=== PATIENT | female | born 1945 | race Caucasian/White ===

== ENCOUNTER → 2017-10-27 08:06 | Outpatient (CLI) | payer MEDICARE, BC, SELFPAY ==
--- NOTE | 2017-10-27 | DI.MG.S_ITS ---
BILATERAL DIGITAL SCREENING MAMMOGRAM 3D/2D WITH CAD POST LUMPECTOMY: 10/27/2017 CLINICAL: Routine screening. Personal history of breast cancer. Family history of breast cancer. Comparison is made to exams dated: 10/24/2016 mammogram, 10/14/2016 mammogram, and 10/12/2015 mammogram - [facility]. The tissue of both breasts is extremely dense, which lowers the sensitivity of mammography. Current study was also evaluated with a Computer Aided Detection (CAD) system. There are benign calcifications in both breasts. There also are post operative findings in the left breast. No significant masses, calcifications, or other findings are seen in either breast. There has been no significant interval change. IMPRESSION: BENIGN There is no mammographic evidence of malignancy. A 1 year screening mammogram is recommended. This exam was interpreted at Station ID: [id number]. NOTE: For mammograms, a report in lay terms will be sent to the patient. Approximately 15% of breast malignancies will not be visualized mammographically. In the management of a palpable breast mass, a negative mammogram must not discourage biopsy of a clinically suspicious lesion. Electronically Signed By: Peter yates/richy:10/27/2017 16:47:40 copy to: CLAUDY SCHMID letter sent: Normal Exam ACR BI-RADS Category 2: Benign Finding(s) [id number]
== END ==
PROVIDERS: Family Provider Physician Assistant; PCP Physician Assistant; Visit Provider Physician Assistant
DX: Z12.31 Encounter for screening mammogram for malignant neoplasm of breast (principal); Z85.3 Personal history of malignant neoplasm of breast; Z80.3 Family history of malignant neoplasm of breast
CPT/HCPCS: 77063; 77067

== ENCOUNTER → 2017-11-26 10:01 | Outpatient (CLI) | payer MEDICARE, BC, SELFPAY | PROVIDERS: PCP Physician Assistant; Visit Provider Nurse Practitioner Gerontology | DX: M81.0 Age-related osteoporosis without current pathological fracture (principal); Z78.0 Asymptomatic menopausal state; C50.919 Malignant neoplasm of unspecified site of unspecified female breast; Z82.62 Family history of osteoporosis; Z90.722 Acquired absence of ovaries, bilateral; Z87.891 Personal history of nicotine dependence | CPT/HCPCS: 77080 ==

== ENCOUNTER 2017-12-31 11:08 | Day surgery (SDC) | payer MEDICARE, BC, SELFPAY ==
--- NOTE | 2017-12-31 07:45 | PM.PREOP ---
Pre-operative Note Interval Note Pre-op Check: Yes History & Physical Reviewed by Physician Changes: No
[2017-12-31 11:49] VITALS: BMI 15.6
[2017-12-31] MEDS: PROPARACAINE 0.5% OPHTH SOL 2 DROPS EYE-OP (11:51)
[2017-12-31] MEDS: CATARACT EYE COMPOUND (10 DROPS/SYRINGE) 3 DROPS EYE-OP (11:56)
[2017-12-31 12:07] VITALS: BP 131/74; PULSE 80; RESP 24; TEMP 36.5; O2SAT 95
[2017-12-31] MEDS: CHONDROIDTIN/SOD HYALURONATE 1.05 ML SYRINGE INTRAOCULA (14:22)
[2017-12-31] MEDS: BALANCED SALT IRRIG SOLN NO.2 15 ML IRRIG.SOLN IRR (14:22)
[2017-12-31] MEDS: CARBACHOL 1.5 ML VIAL INJ (14:22)
[2017-12-31] MEDS: HYALURONATE SODIUM 10 MG/ML SYRINGE INJ (14:23)
[2017-12-31] MEDS: MOXIFLOXACIN OPHTH DROPS 3 ML BOTTLE 2 DROPS INJ (14:23)
[2017-12-31] MEDS: OFLOXACIN 0.3% OPHTH 5 ML 2 DROPS EYE-RIGHT (14:23)
[2017-12-31] MEDS: PHENYLEPHRINE/LIDOCAINE 3ML VIAL (OR) EYE-OP (14:25)
[2017-12-31] MEDS: TRIAMCINOLONE 50 MG/5 ML VIAL INJ (14:26)
[2017-12-31] MEDS: LIDOCAINE 2% 4 ML, BUPIVACAINE 0.5% (PF) 4 ML, HYALURONIDASE 150 UNIT INJ (14:26)
[2017-12-31] MEDS: BALANCED SALT IRRIG SOLN NO.2 500 ML, EPINEPHrine 1 MG IRR (14:26)
[2017-12-31] MEDS: LIDOCAINE 1% W/EPI INJ 20 ML INJ (14:29)
[2017-12-31 14:50] VITALS: BP 125/75; PULSE 80; RESP 15; TEMP 36.8; O2SAT 96
[2017-12-31 15:21] VITALS: BP 131/74; PULSE 80; RESP 24; TEMP 36.5; O2SAT 95
--- NOTE | 2017-12-31 17:35 | P.OP_ITS ---
Operative Date/Time/Diagnoses Date of procedure: 12/31/17 Time of procedure: 14:29 Procedure & Clinicians Procedure: Date of service: January 01, 2008 Preoperative diagnoses: 1. Right nuclear sclerotic and cortical Cataract. 2. Desire for a multifocal implant. Postoperative diagnoses: 1. Cataract removed by phacoemulsification with placement of a multifocal intraocular lens implant. Procedure: Phacoemulsification with posterior chamber intraocular lens implant Surgeon: Юлия Zheng MD Complications: None Specimen: None Implant: ZXROO +22.0 Blood loss: None Anesthesia: Retrobulbar with monitored standby Anesthesiologist: Marko Vasquez M.D. Description of procedure: Patient is a female year old with decreased vision due to cataract which is affecting activities of daily living. She wants surgery to improve vision. She was taken to the operating room and given IV sedation. A retrobulbar block insert consisting of 6 cc of 2% xylocaine without epinephrine mixed half and half with 0.5% Marcaine with 1 cc of hyaluronidase added is placed between the medial and lateral 1/3 of the inferior orbital rim. Lid akinesia is obtain with 1% xylocaine with epinephrine infiltrated along the lid margin. The eye is manually massaged for 30 sec, prepped using Betadine solution, and draped in the usual sterile fashion. Temporal approach was made, a 1 mm side-port incision was made at the 7:30 position. Phenylephrine 1.5% mixed with 1% xylocaine 0.2 cc was placed into the anterior chamber. Viscoat followed by Healon was then placed. A 2.6 mm clear incision with a 2.6 mm blade was placed at the 170 degree meridian. A 360 degree capsulorrhexis style capsulotomy was then performed with a cystitome needle on a Healon. Hydrodelineation and hydrodissection were performed. The phacoemulsification unit is introduced, and sculpting notice used to groove the central lens. It is then removed in chopping mode. Epi nucleus is removed with epinuclear mode and irrigation aspiration was used to remove the peripheral cortex. The posterior capsule is polished. The intraocular lens is selected, inspected, power confirmed, and placed in the posterior chamber. It is a Symfony multifocal IOL and was well centered.why The pupil was not constricted. The wound was stromally hydrated and tested for leaks, there was none and was left sutureless. Vigamox 0.1 cc was placed into the anterior chamber. Kenalog 0.2 cc was placed in the superior subconjunctival space. A drop of antibiotic and was placed and the eye was patched and shielded. The patient was stable and returned to the recovery room in excellent condition. Dictated by: Юлия Zheng MD Copy to: [facility]
== END 2017-12-31 15:23 | disposition home or self-care (01) ==
LOC: OR 11:10
PROVIDERS: PCP Physician Assistant; Visit Provider Ophthalmology
DX: H25.11 Age-related nuclear cataract, right eye (principal); I10 Essential (primary) hypertension; J44.9 Chronic obstructive pulmonary disease, unspecified
CPT/HCPCS: J0171; J2250; J2704; J3010; J3301; J3470; V2788

== ENCOUNTER 2018-02-25 09:09 | Day surgery (SDC) | payer MEDICARE, BC, SELFPAY ==
--- NOTE | 2018-02-25 08:15 | PM.PREOP ---
Pre-operative Note Interval Note Pre-op Check: Yes History & Physical Reviewed by Physician Changes: No
--- NOTE | 2018-02-25 08:16 | PM.PREOP ---
Pre-operative Note Interval Note Pre-op Check: Yes History & Physical Reviewed by Physician Changes: No
--- NOTE | 2018-02-25 08:27 | PM.OP.1 ---
Operative Date/Time/Diagnoses Date of procedure: 02/25/18 Time of procedure: 11:00 Procedure & Clinicians Procedure: Date of service: February 25, 2018 Preoperative diagnoses: 1. Left nuclear sclerotic and cortical cataract. 2. COPD 3. hypertension Postoperative diagnoses: 1. Cataract removed with phacoemulsification and Symfony Multifocal posterior chamber intra-ocular lens placed. Procedure: Phacoemulsification with posterior chamber intraocular lens implant Surgeon: Юлия Zheng MD Complications:none Specimen: None Implant:ZXROO+22.5 Blood loss: None Anesthesia: Retrobulbar with monitored standby Anesthesiologist: Sonu Covington M.D. Description of procedure: Patient is a female year old with decreased vision due to cataract which is affecting activities of daily living. She wants surgery to improve vision. She was taken to the operating room and given IV sedation. A retrobulbar block insert consisting of 6 cc of 2% xylocaine without epinephrine mixed half and half with 0.5% Marcaine with 1 cc of hyaluronidase added is placed between the medial and lateral 1/3 of the inferior orbital rim. Lid akinesia is obtain with 1% xylocaine with epinephrine infiltrated along the lid margin. The eye is manually massaged for 30 sec, prepped using Betadine solution, and draped in the usual sterile fashion. Temporal approach was made, a 1 mm side-port incision was made at the 12:00 position. Phenylephrine 1.5% mixed with 1% xylocaine 0.2 cc was placed into the anterior chamber. Viscoat followed by Healon was then placed. A 2.6 mm clear incision with a 2.6 mm blade was placed at the 180 degree meridian. A 360 degree capsulorrhexis style capsulotomy was then performed with a cystitome needle on a Healon. Hydrodelineation and hydrodissection were performed. The phacoemulsification unit is introduced, and sculpting notice used to groove the central lens. It is then removed in chopping mode. Epi nucleus is removed with epinuclear mode and irrigation aspiration was used to remove the peripheral cortex. The posterior capsule is polished. The intraocular lens is selected, inspected, power confirmed, and placed in the posterior chamber. The pupil was not constricted. The wound was strongly hydrated and tested for leaks, there was left sutureless. Vigamox 0.1 cc was placed into the anterior chamber. Kenalog 0.2 cc was placed in the superior subconjunctival space. A bandage contact was placed for a small superior epithelial defect at sideport due to peculum. A drop of antibiotic and was placed and the eye was patched and shielded. The patient was stable and returned to the recovery room in excellent condition. Dictated by: Юлия Zheng MD Copy to: [facility] Same procedure as scheduled: Yes
--- NOTE | 2018-02-25 08:32 | PM.PREOP ---
Pre-operative Note Interval Note Pre-op Check: Yes History & Physical Reviewed by Physician Changes: No
[2018-02-25] MEDS: PROPARACAINE 0.5% OPHTH SOL 2 DROPS EYE-OP (09:46)
[2018-02-25] MEDS: CATARACT EYE COMPOUND (10 DROPS/SYRINGE) 3 DROPS EYE-OP (09:47)
[2018-02-25 09:49] VITALS: BP 145/92; PULSE 95; RESP 16; TEMP 36.6; O2SAT 93; BMI 16.0
[2018-02-25] MEDS: LIDOCAINE 1% W/EPI INJ 20 ML INJ (11:02)
[2018-02-25] MEDS: MOXIFLOXACIN OPHTH DROPS 3 ML BOTTLE 2 DROPS INJ (11:02)
[2018-02-25] MEDS: BALANCED SALT IRRIG SOLN NO.2 15 ML IRRIG.SOLN IRR (11:02)
[2018-02-25] MEDS: CHONDROIDTIN/SOD HYALURONATE 1.05 ML SYRINGE INTRAOCULA (11:02)
[2018-02-25] MEDS: OFLOXACIN 0.3% OPHTH 5 ML 2 DROPS EYE-LEFT (11:03)
[2018-02-25] MEDS: TRIAMCINOLONE 50 MG/5 ML VIAL INJ (11:03)
[2018-02-25] MEDS: PHENYLEPHRINE/LIDOCAINE VIAL (OR) 0.2 ML EYE-OP (11:03)
[2018-02-25] MEDS: BALANCED SALT IRRIG SOLN NO.2 500 ML, EPINEPHrine 1 MG IRR (11:04)
[2018-02-25] MEDS: LIDOCAINE 2% 4 ML, BUPIVACAINE 0.5% (PF) 4 ML, HYALURONIDASE 150 UNIT INJ (11:04)
[2018-02-25] MEDS: HYALURONATE SODIUM 10 MG/ML SYRINGE INJ (11:06)
[2018-02-25] MEDS: CARBACHOL 1.5 ML VIAL INJ (11:07)
[2018-02-25 11:35] VITALS: BP 131/78; PULSE 83; RESP 16; TEMP 36.4; O2SAT 96
== END 2018-02-25 14:00 | disposition home or self-care (01) ==
LOC: OR 09:10
PROVIDERS: PCP Physician Assistant; Visit Provider Ophthalmology
DX: H25.12 Age-related nuclear cataract, left eye (principal); J44.9 Chronic obstructive pulmonary disease, unspecified; I10 Essential (primary) hypertension
CPT/HCPCS: J0171; J2704; J3301; J3470; V2788

== ENCOUNTER → 2018-02-26 16:38 | Outpatient (CLI) | payer MEDICARE, BC, SELFPAY ==
[2018-02-26 17:49] LABS: Add Manual Diff / Slide Review NO; Eosinophils Percent Auto 2.4 % (2-4); Hemoglobin 14.2 g/dL (12.0-16.0); Lymphocytes Percent Auto 15.2 % (25-40); Mean Corpuscular HGB Conc 32.2 % (30-36); Mean Corpuscular Hemoglobin 30.8 PG (26-34); Mean Corpuscular Volume 95.5 fL (80-100); Monocytes Percent Auto 9.5 % (3-14); Neutrophils Absolute Auto 3400 /uL (3000-5900); Neutrophils Percent Auto 71.9 % (50-75); Platelet Count 226 X10^3/uL (150-400); Red Blood Cell Count 4.61 X10^6/uL (4.0-5.2); Red Cell Distribution Width 15.2 % (11.6-14.8); White Blood Cell Count 4.7 X10^3/uL (4.5-11.0)
[2018-02-26 18:38] LABS: Alanine Aminotransferase 32 IU/L (9-52); Albumin 4.6 g/dL (3.5-5.0); Albumin Globulin Ratio 1.8 (1.0-2.8); Alkaline Phosphatase 86 U/L (38-126); Aspartate Aminotransferase 35 IU/L (14-36); BUN Creatinine Ratio 32.9 (6-22); Bilirubin Total 0.3 mg/dL (0.2-1.3); Blood Urea Nitrogen 23 mg/dL (7-17); Calcium 10.1 mg/dL (8.4-10.2); Carbon Dioxide 32 mmol/L (22-32); Chloride 104 mmol/L (98-107); Cholesterol 209 mg/dL (140-199); Estimated Glomerular Filt Rate > 60.0 mL/min (>60); Globulin 2.5 g/dL (1.7-4.1); Glucose 100 mg/dL (80-110); HEMOLYSIS < 15 (0-50); Potassium 5.2 mmol/L (3.4-5.1); Sodium 147 mmol/L (137-145); Total Protein 7.1 g/dL (6.3-8.2); Triglycerides 72 mg/dL (35-150)
[2018-02-26 18:46] LABS: HDL Cholesterol 125 mg/dL (40-60); LDL Cholesterol Calculated 70 mg/dL (<100)
[2018-02-26 18:52] LABS: Free T4, Direct Thyroxine 1.09 ng/dL (0.78-2.19)
[2018-02-26 19:07] LABS: Thyroid Stimulating Hormone 0.44 uIU/mL (0.47-4.68)
[2018-02-26 21:31] LABS: Vitamin D 25 Hydroxy (D3) 13.5 ng/mL (30.0-100.0)
[2018-02-28 14:44] LABS: Parathyroid Hormone Int 94 pg/mL (14-64)
== END ==
PROVIDERS: PCP Physician Assistant; Visit Provider Physician Assistant
DX: I10 Essential (primary) hypertension (principal); E78.2 Mixed hyperlipidemia; M81.0 Age-related osteoporosis without current pathological fracture; E44.0 Moderate protein-calorie malnutrition; J44.9 Chronic obstructive pulmonary disease, unspecified
CPT/HCPCS: 36415; 80053; 80061; 82306; 83970; 84439; 84443; 85025

== ENCOUNTER → 2018-03-19 11:08 | Outpatient (CLI) | payer MEDICARE, BC, SELFPAY ==
--- NOTE | 2018-03-19 | DI.MRI.S_ITS ---
PROCEDURE: MR HEAD/BRAIN WO CON INDICATIONS: DIZZINESS TECHNIQUE: Non-contrast axial T1 spin echo, axial T2 fast spin echo, sagittal and axial FLAIR, coronal T2 fast spin echo, axial gradient echo, axial diffusion and ADC through the brain. COMPARISON: [facility], CT, HEAD WITHOUT CONTRAST, 05/18/2012, 12:20. [facility], CT, HEAD WITHOUT CONTRAST, 07/08/2017, 9:39. [facility], MR, MR ANGIO HEAD WO CON, 03/19/2018, 11:26. FINDINGS: Image quality: Excellent. CSF spaces: Ventricles appear symmetric in size and shape. Basal cisterns are patent. No extra-axial fluid collections. Brain: No intracranial bleeds or mass effects. There is cerebral volume loss for age. There are periventricular and deep white matter chronic small vessel ischemic changes. Brainstem appears normal. Diffusion-weighted images show no acute ischemic insults. No chronic ischemic insults. Normal intravascular flow voids are present. Skull and face: Calvarial bone marrow is normal in signal. Orbits are normal. Note is made of bilateral lens replacements. Sinuses: Sinuses and mastoids are clear. IMPRESSION: No findings of acute or subacute infarction can be seen. Note is made of age-appropriate brain parenchymal volume loss and chronic small vessel ischemic changes. Dictated by: Bernabe Orellana M.D. on 03/19/2018 at 13:40 Approved by: Bernabe Orellana M.D. on 03/19/2018 at 13:41
--- NOTE | 2018-03-19 | DI.MRI.S_ITS ---
PROCEDURE: MR ANGIO HEAD WO CON INDICATIONS: DIZZINESS TECHNIQUE: Noncontrast axial 3-D [id number] MR angiogram, with 3-dimensional maximum intensity projection (MIP) reformats of the internal carotid arteries and posterior circulation then performed. COMPARISON: [facility], MR, MR HEAD/BRAIN WO CON, 03/19/2018, 11:34. [facility], CT, HEAD WITHOUT CONTRAST, 07/08/2017, 9:39. FINDINGS: Image quality: Excellent. Anterior circulation: Intracranial internal carotid arteries demonstrate normal size and intraluminal flow signal. The flow within the paired anterior cerebral arteries is normal and symmetric. The flow within the middle cerebral arteries is normal and symmetric. The anterior communicating artery is seen. No stenoses, occlusions, or aneurysms. Posterior circulation: Visualized portions of the vertebral arteries demonstrate normal caliber, and join to form a normal appearing basilar artery. The flow within the posterior cerebral arteries is normal and symmetric. No stenoses, occlusions, or aneurysms. IMPRESSION: Negative MRA. Dictated by: Bernabe Orellana M.D. on 03/19/2018 at 13:38 Approved by: Bernabe Orellana M.D. on 03/19/2018 at 13:40
== END ==
PROVIDERS: PCP Physician Assistant; Visit Provider Specialist
DX: R42 Dizziness and giddiness (principal)
CPT/HCPCS: 70544; 70551

== ENCOUNTER → 2018-07-10 16:00 | Outpatient (CLI) | payer MEDICARE, BC, SELFPAY ==
--- NOTE | 2018-07-10 | DI.RAD.S_ITS ---
PROCEDURE: XR RIBS LT MIN 3V W CXR1V INDICATIONS: INTERCOSTAL PAIN TECHNIQUE: 2 views of the left ribs were acquired, along with a single view chest. COMPARISON: None. FINDINGS: Severe motion degradation of the study Surgical changes and devices: None. Bones and chest wall: No fractures however limited evaluation given motion degradation of several images. No suspicious bony lesions. Overlying soft tissues appear unremarkable. There are prominent calcifications projecting in the left breast. There are surgical clips projecting in the the axilla. Lateral curvature of the spine. Possible calcified granulomas projecting in the right lung base versus rib end shadows. Lungs and pleura: No pleural effusions or pneumothorax. Lungs appear clear. Mediastinum: Mediastinal contours appear normal. Heart size is normal. IMPRESSION: Motion degraded examination. No definite rib fractures seen although given the extensive motion artifact consider repeat study if the patient's symptoms do not improve, or further evaluation with chest CT. Prominent left breast calcifications, nonspecific and recommend mammographic correlation No acute disease. Dictated by: Crescencio Arreguin M.D. on 07/10/2018 at 16:28 Approved by: Crescencio Arreguin M.D. on 07/10/2018 at 16:32
== END ==
PROVIDERS: PCP Physician Assistant; Visit Provider Physician Assistant
DX: R07.82 Intercostal pain (principal)
CPT/HCPCS: 71101

== ENCOUNTER → 2018-07-27 09:39 | Outpatient (CLI) | payer MEDICARE, BC, SELFPAY ==
--- NOTE | 2018-07-27 | DI.CT.S_ITS ---
PROCEDURE: CT CHEST WO CON INDICATIONS: compare to prior scan lung lesion TECHNIQUE: Noncontrast 5 mm thick sections acquired from the pulmonary apices to the posterior costophrenic angles. 7 mm thick coronal and sagittal MIP reformats were then acquired. For radiation dose reduction, the following was used: automated exposure control, adjustment of mA and/or kV according to patient size. COMPARISON: [facility], CT, THORAX WITHOUT CONTRAST, 07/29/2017, 13:16. FINDINGS: Image quality: Excellent. Lungs and pleura: No acute air space opacities. There is severe COPD. 3 areas of focal radiodensity within the lung parenchyma are again seen. These have not changed from 07/29/17, 1 year ago. These are located within the anterior left upper lobe, series 2 image 14, within the posterior lateral left upper lobe (series 2 image 17) and also within the same axial level at the right where lung scarring also appears present seen on series 2 image 17. No pleural effusions or pneumothorax. Central and peripheral airways are patent and normal in caliber. Mediastinum: Heart size is normal. No pericardial effusion. No mediastinal adenopathy by size criteria. Thoracic aorta and central pulmonary arteries are normal in size. Esophagus is normal in caliber. No hiatal hernia. Bones and chest wall: No suspicious bony lesions. No vertebral body compression fractures. No axillary or supraclavicular adenopathy by size criteria. Thyroid gland is not well-seen. Abdomen: Visualized upper abdominal solid organs and bowel loops appear normal in the absence of contrast. IMPRESSION: Stable morphology and size of 3 small separate lung radiodensities within the upper lobes bilaterally, likely representing sequela of prior inflammatory advance and lung scarring. No followup recommended. Severe COPD. Dictated by: Zi Mitchell M.D. on 07/27/2018 at 11:23 Approved by: Zi Mitchell M.D. on 07/27/2018 at 11:35
== END ==
PROVIDERS: PCP Physician Assistant; Visit Provider Physician Assistant
DX: R91.8 Other nonspecific abnormal finding of lung field (principal); J44.9 Chronic obstructive pulmonary disease, unspecified
CPT/HCPCS: 71250

== ENCOUNTER → 2018-08-11 14:36 | Outpatient (CLI) | payer MEDICARE, BC, SELFPAY ==
--- NOTE | 2018-08-11 | DI.US.S_ITS ---
LIMITED ULTRASOUND OF LEFT BREAST: 08/11/2018 CLINICAL: Focal left breast pain. Comparison is made to exams dated: 08/11/2018 mammogram, 10/27/2017 mammogram, 10/24/2016 mammogram, 10/14/2016 mammogram, 10/12/2015 mammogram, and 04/21/2015 [facility]. Color flow and real-time ultrasound of the left breast 12 o'clock region were performed. There is a benign irregular mass in the left breast at 12 o'clock anterior depth. This irregular mass is hyperechoic with posterior acoustic shadowing. This correlates as palpated and with mammography findings. There is associated skin thickening. IMPRESSION: BENIGN There is no sonographic evidence of malignancy. The irregular mass in the left breast is consistent with fat necrosis and is benign. Clinical followup is recommended for associated skin thickening. A 1 year screening mammogram is recommended. This exam was interpreted at Station ID: [id number]. Electronically Signed By: Peter Garcia M.D. ddp/:08/13/2018 16:24:45 copy to: CLAUDY SCHMID letter sent: Clinical Evaluation Ultrasound BI-RADS: 2 Benign
--- NOTE | 2018-08-11 | DI.MG.S_ITS ---
BILATERAL DIGITAL DIAGNOSTIC MAMMOGRAM 3D/2D: 08/11/2018 CLINICAL: Left breast thickening and tenderness. Family history of breast cancer. Personal history of breast cancer. Comparison is made to exams dated: 10/27/2017 mammogram, 10/24/2016 mammogram, 10/14/2016 mammogram, and 10/12/2015 mammogram - [facility]. The tissue of both breasts is extremely dense, which lowers the sensitivity of mammography. There is an oval high density fat necrosis with a circumscribed margin and grouped coarse dystrophic calcifications in the left breast at 1 o'clock anterior depth. This is not significantly changed and correlates as palpated. No other significant masses, calcifications, or other findings are seen in either breast. IMPRESSION: INCOMPLETE: NEEDS ADDITIONAL IMAGING EVALUATION The oval high density fat necrosis in the left breast is indeterminate. An ultrasound is recommended. This exam was interpreted at Station ID: [id number]. NOTE: For mammograms, a report in lay terms will be sent to the patient. Approximately 15% of breast malignancies will not be visualized mammographically. In the management of a palpable breast mass, a negative mammogram must not discourage biopsy of a clinically suspicious lesion. Electronically Signed By: Peter yates/richy:08/11/2018 16:09:06 copy to: CLAUDY SCHMID letter sent: Need Ultrasound ACR BI-RADS Category 0: Incomplete [id number]
== END ==
PROVIDERS: PCP Physician Assistant; Visit Provider Physician Assistant
DX: R92.8 Other abnormal and inconclusive findings on diagnostic imaging of breast (principal); R92.1 Mammographic calcification found on diagnostic imaging of breast; N64.1 Fat necrosis of breast; N64.4 Mastodynia; Z85.3 Personal history of malignant neoplasm of breast; Z80.3 Family history of malignant neoplasm of breast
CPT/HCPCS: 76642; 77066; G0279

== ENCOUNTER → 2019-01-01 15:29 | Outpatient (CLI) | payer MEDICARE, BC, SELFPAY ==
[2019-01-01 16:14] LABS: Add Manual Diff / Slide Review NO; Basophils Absolute Auto 0 /uL (0-100); Basophils Percent Auto 1.2 % (0-2); Eosinophils Absolute Auto 100 /uL (0-450); Eosinophils Percent Auto 1.5 % (2-4); Hematocrit 46.9 % (36-46); Hemoglobin 15.6 g/dL (12.0-16.0); Lymphocytes Absolute Auto 600 /uL (1100-4500); Lymphocytes Percent Auto 17.2 % (25-40); Mean Corpuscular HGB Conc 33.3 % (30-36); Mean Corpuscular Hemoglobin 30.8 PG (26-34); Mean Corpuscular Volume 92.3 fL (80-100); Monocytes Absolute Auto 400 /uL (0-900); Monocytes Percent Auto 10.3 % (3-14); Neutrophils Absolute Auto 2500 /uL (1500-7000); Neutrophils Percent Auto 69.8 % (50-75); Platelet Count 246 X10^3/uL (150-400); Red Blood Cell Count 5.08 X10^6/uL (4.0-5.2); Red Cell Distribution Width 13.7 % (11.6-14.8); White Blood Cell Count 3.6 X10^3/uL (4.5-11.0)
[2019-01-01 17:17] LABS: Alanine Aminotransferase 21 IU/L (9-52); Albumin 4.4 g/dL (3.5-5.0); Albumin Globulin Ratio 1.5 (1.0-2.8); Alkaline Phosphatase 117 U/L (38-126); Aspartate Aminotransferase 34 IU/L (14-36); BUN Creatinine Ratio 31.4 (6-22); Bilirubin Total 0.5 mg/dL (0.2-1.3); Blood Urea Nitrogen 22 mg/dL (7-17); Calcium 10.3 mg/dL (8.4-10.2); Carbon Dioxide 29 mmol/L (22-32); Chloride 99 mmol/L (98-107); Cholesterol 199 mg/dL (140-199); Estimated Glomerular Filt Rate > 60.0 mL/min (>60); Glucose 101 mg/dL (80-110); HDL Cholesterol 99 mg/dL (40-60); HEMOLYSIS < 15 (0-50); LDL Cholesterol Calculated 80 mg/dL (<100); Potassium 4.4 mmol/L (3.4-5.1); Sodium 138 mmol/L (137-145); Total Protein 7.4 g/dL (6.3-8.2); Triglycerides 98 mg/dL (35-150)
[2019-01-01 17:46] LABS: Thyroid Stimulating Hormone 0.28 uIU/mL (0.47-4.68)
== END ==
PROVIDERS: PCP Physician Assistant; Visit Provider Physician Assistant
DX: E78.2 Mixed hyperlipidemia (principal); I10 Essential (primary) hypertension
CPT/HCPCS: 36415; 80053; 80061; 83970; 84443; 85025

== ENCOUNTER → 2019-02-26 13:28 | Outpatient (CLI) | payer MEDICARE, BC, SELFPAY | PROVIDERS: PCP Physician Assistant; Visit Provider Internal Medicine Endocrinology, Diabetes & Metabolism | DX: M81.0 Age-related osteoporosis without current pathological fracture (principal); Z78.0 Asymptomatic menopausal state; E21.3 Hyperparathyroidism, unspecified; Z85.3 Personal history of malignant neoplasm of breast; Z90.722 Acquired absence of ovaries, bilateral; Z82.62 Family history of osteoporosis; Z87.891 Personal history of nicotine dependence | CPT/HCPCS: 77080 ==

== ENCOUNTER → 2019-03-01 08:14 | Outpatient (CLI) | payer MEDICARE, BC, SELFPAY ==
[2019-03-01 09:54] LABS: Calcium 10.3 mg/dL (8.4-10.2)
[2019-03-01 10:14] LABS: Free T3, Triiodothyronine Free 3.16 pg/mL (2.77-5.27); Free T4, Direct Thyroxine 1.03 ng/dL (0.78-2.19)
[2019-03-01 10:26] LABS: Cortisol AM (Before 10AM) 19.7 ug/dL (4.46-22.7)
[2019-03-06 15:17] LABS: Parathyroid Hormone Int 112 pg/mL (14-64)
== END ==
PROVIDERS: Family Provider Physician Assistant; PCP Physician Assistant; Visit Provider Internal Medicine Endocrinology, Diabetes & Metabolism
DX: E21.3 Hyperparathyroidism, unspecified (principal); M81.0 Age-related osteoporosis without current pathological fracture
CPT/HCPCS: 36415; 82310; 82533; 83970; 84439; 84443; 84481

== ENCOUNTER → 2019-04-14 12:52 | Outpatient (CLI) | payer MEDICARE, BC, SELFPAY ==
[2019-04-14 16:14] LABS: Vitamin D 25 Hydroxy (D3) < 12.8 ng/mL (30.0-100.0)
[2019-04-17 21:35] LABS: Albumin 4.2 g/dL (3.8-4.8); Alpha 1 Globulin 0.2 g/dL (0.2-0.3); Alpha 2 Globulin 0.7 g/dL (0.5-0.9); Beta 1 Globulin 0.4 g/dL (0.4-0.6); Gamma Globulin 0.9 g/dL (0.8-1.7); Protein, Total 6.7 g/dL (6.1-8.1)
[2019-04-20 01:23] LABS: (tTG) Ab, IgA < 1 U/mL
== END ==
PROVIDERS: Family Provider Physician Assistant; PCP Physician Assistant; Visit Provider Internal Medicine Endocrinology, Diabetes & Metabolism
DX: E21.3 Hyperparathyroidism, unspecified (principal); M81.0 Age-related osteoporosis without current pathological fracture
CPT/HCPCS: 36415; 82306; 82784; 83516; 84155; 84165; 86255

== ENCOUNTER → 2019-12-09 13:21 | Outpatient (CLI) | payer MEDICARE, BC, SELFPAY | PROVIDERS: Family Provider Physician Assistant; PCP Physician Assistant; Referring Provider Physician Assistant; Visit Provider Physician Assistant | DX: M81.0 Age-related osteoporosis without current pathological fracture (principal); Z78.0 Asymptomatic menopausal state; Z82.62 Family history of osteoporosis; Z85.3 Personal history of malignant neoplasm of breast; Z87.891 Personal history of nicotine dependence | CPT/HCPCS: 77080 ==

== ENCOUNTER → 2019-12-28 13:26 | Outpatient (CLI) | payer MEDICARE, BC, SELFPAY ==
--- NOTE | 2019-12-28 | DI.MG.S_ITS ---
BILATERAL DIGITAL DIAGNOSTIC MAMMOGRAM 3D/2D POST LUMPECTOMY: 12/28/2019 CLINICAL: Left breast mass. Comparison is made to exams dated: 08/11/2018 mammogram, 10/27/2017 mammogram, and 10/14/2016 mammogram - [facility]. The tissue of both breasts is extremely dense, which lowers the sensitivity of mammography. There are stable benign calcifications in the right breast. The left breast has stable post-operative findings. There also are benign appearing calcifications in the left breast that are not significantly changed. Additionally, there are benign dystrophic calcifications in the left breast at 12 o'clock in the sub-areolar depth that correlate with clinical concern, palpable abnormalities, triangle skin marker, and reported tenderness. These have continued to increase in degree of internal calcification. No significant masses, calcifications, or other findings are seen in either breast. IMPRESSION: INCOMPLETE: NEEDS ADDITIONAL IMAGING EVALUATION Coarse, dystrophic calcifications in the 12:00 o'clock subareolar left breast which correlates with palpable area of concern. This likely relates to increased density of these dystrophic calcifications and benign. However, patient reports history of possible bloody nipple discharge versus nipple dryness/irritation. An ultrasound is scheduled to be performed immediately after this exam. This exam was interpreted at Station ID: [id number]. NOTE: For mammograms, a report in lay terms will be sent to the patient. Approximately 15% of breast malignancies will not be visualized mammographically. In the management of a palpable breast mass, a negative mammogram must not discourage biopsy of a clinically suspicious lesion. Electronically Signed By: Keagan Delgado M.D. aty/:12/28/2019 14:13:56 copy to: YUM[facility] CAICEDO BI-RADS Category 0: Incomplete [id number]
--- NOTE | 2019-12-28 | DI.US.S_ITS ---
ULTRASOUND OF LEFT BREAST: 12/28/2019 CLINICAL: Palpable left breast lump. Comparison is made to exams dated: 12/28/2019 mammogram, 08/11/2018 ultrasound, 08/11/2018 mammogram, 10/27/2017 mammogram, 10/24/2016 mammogram, and 10/14/2016 mammogram - [facility]. Color flow and real-time ultrasound of the left breast were performed. Ryan scale images of the real-time examination were reviewed. Corresponding to the palpable area of concern, there is a 3.4 cm x 3.8 cm irregular/lobular mass in the left breast at 12 o'clock in the retroareolar region with dense posterior acoustic shadowing. This correlates with mammography findings of dense dystrophic calcifications that have become more calcified over time. Color flow imaging demonstrates that there is no vascularity present. IMPRESSION: BENIGN There is no sonographic evidence of malignancy. The 3.4 cm x 3.8 cm irregular mass in the left breast represents dense conglomeration of retroareolar dystrophic calcifications as noted on today's comparison mammogram, and is benign. Recommend clinical followup for persistent or worsening symptoms and/or development of any clinically suspicious findings. A 1 year screening mammogram is recommended. Findings and recommendations were conveyed to the patient during today's visit. This exam was interpreted at Station ID: [id number]. Electronically Signed By: Keagan Delgado M.D. aty/:12/28/2019 15:16:39 copy to: YUMIKO PATEL letter sent: Clinical Evaluation Ultrasound BI-RADS: 2 Benign
== END ==
PROVIDERS: Family Provider Physician Assistant; PCP Physician Assistant; Referring Provider Physician Assistant; Visit Provider Internal Medicine
DX: R92.8 Other abnormal and inconclusive findings on diagnostic imaging of breast (principal); R92.1 Mammographic calcification found on diagnostic imaging of breast; N63.25 Unspecified lump in the left breast, overlapping quadrants
CPT/HCPCS: 76642; 77066; G0279

== ENCOUNTER → 2020-01-10 13:51 | Outpatient (CLI) | payer MEDICARE, SELFPAY ==
[2020-01-11 10:12] LABS: COVID19 Sendout Not Detected (Not Detect)
== END ==
PROVIDERS: Family Provider Physician Assistant; PCP Physician Assistant; Visit Provider Physician Assistant
DX: Z11.59 Encounter for screening for other viral diseases (principal)
CPT/HCPCS: 87635

== ENCOUNTER → 2020-01-31 15:16 | Outpatient (CLI) | payer MEDICARE, BC, SELFPAY ==
[2020-01-31 16:56] LABS: Add Manual Diff / Slide Review NO; Basophils Absolute Auto 0 /uL (0-100); Basophils Percent Auto 1.1 % (0-2); Eosinophils Absolute Auto 0 /uL (0-450); Eosinophils Percent Auto 0.8 % (2-4); Hematocrit 44.9 % (36-46); Hemoglobin 14.9 g/dL (12.0-16.0); Lymphocytes Absolute Auto 700 /uL (1100-4500); Lymphocytes Percent Auto 18.4 % (25-40); Mean Corpuscular HGB Conc 33.1 % (30-36); Mean Corpuscular Volume 93.7 fL (80-100); Monocytes Absolute Auto 300 /uL (0-900); Monocytes Percent Auto 8.3 % (3-14); Neutrophils Absolute Auto 2800 /uL (1500-7000); Neutrophils Percent Auto 71.4 % (50-75); Platelet Count 244 X10^3/uL (150-400); Red Blood Cell Count 4.79 X10^6/uL (4.0-5.2); Red Cell Distribution Width 13.7 % (11.6-14.8)
[2020-01-31 17:13] LABS: Alanine Aminotransferase 18 IU/L (<35); Albumin 4.4 g/dL (3.5-5.0); Albumin Globulin Ratio 1.4 (1.0-2.8); Alkaline Phosphatase 95 U/L (38-126); Aspartate Aminotransferase 32 IU/L (14-36); BUN Creatinine Ratio 27.8 (6-22); Bilirubin Total 0.5 mg/dL (0.2-1.3); Blood Urea Nitrogen 22 mg/dL (7-17); Calcium 9.8 mg/dL (8.4-10.2); Carbon Dioxide 34 mmol/L (22-32); Chloride 100 mmol/L (98-107); Estimated Glomerular Filt Rate > 60.0 mL/min (>60); Globulin 3.1 g/dL (1.7-4.1); Glucose 94 mg/dL (80-110); HEMOLYSIS < 15 (0-50); Potassium 4.7 mmol/L (3.4-5.1); Sodium 139 mmol/L (137-145); Total Protein 7.5 g/dL (6.3-8.2)
[2020-01-31 17:14] LABS: C-Reactive Protein Quant < 0.5 mg/dL (<1.0)
[2020-01-31 17:35] LABS: Erythrocyte Sedimentation Rate 2 MM/HR (0-20)
[2020-01-31 17:47] LABS: Vitamin D 25 Hydroxy (D3) 18.4 ng/mL (30.0-100.0)
[2020-01-31 18:02] LABS: TSH w/ Reflex to FT4 0.29 uIU/mL (0.47-4.68)
[2020-01-31 18:32] LABS: Free T4, Direct Thyroxine 1.11 ng/dL (0.78-2.19)
[2020-02-01 08:08] LABS: Parathyroid Hormone Int 89 pg/mL (15-65)
== END ==
PROVIDERS: Internal Medicine; Family Provider Physician Assistant; PCP Physician Assistant; Referring Provider Physician Assistant; Visit Provider Physician Assistant
DX: E78.2 Mixed hyperlipidemia (principal); I10 Essential (primary) hypertension; R63.4 Abnormal weight loss; E55.9 Vitamin D deficiency, unspecified; E83.52 Hypercalcemia; N63.20 Unspecified lump in the left breast, unspecified quadrant; M81.0 Age-related osteoporosis without current pathological fracture; C50.919 Malignant neoplasm of unspecified site of unspecified female breast
CPT/HCPCS: 36415; 80053; 82306; 83970; 84439; 84443; 85025; 85651; 86140

== ENCOUNTER → 2020-01-31 15:26 | Oncology outpatient (ONC) | payer MEDICARE, BC, SELFPAY ==
--- NOTE | 2017-11-03 09:02 | P.PNONC_ITS ---
Assessment and Plan (1) Breast cancer Status: Acute 11/03/17 09:02 Kylah is a 72 year old Female who is being seen in the clinic 11/03/2017. He carries a diagnosis of stage I luminal-like A breast cancer in clinical remission/surveillance since her original diagnosis in August 2010. PN -Subjective Interval history: The patient is a 72 year old Female who is being seen in the clinic 11/03/2017. He carries a diagnosis of stage I luminal-like A breast cancer in clinical remission/surveillance since her original diagnosis in August 2010. She presents today for annual clinical evaluation. Past Medical History The patient's past medical history is significant for: 1. Left-sided stage I, T1 N0 breast cancer originally diagnosed from an ultrasound core needle biopsy dated September 05, 2010. The patient's primary was a well-differentiated invasive ductal carcinoma, ER/NC positive at 98% and 93%, respectively. Ki-67 at 16%. HER2 was 1+. The patient is status post partial mastectomy with sentinel node procedure, her primary being 0.4 cm in greatest diameter. No LVI. Margins were otherwise clear. The patient was on Evista for a brief period of time between the periods of March 2011 through October 2014. She is up-to-date with her imaging studies including bilateral screening mammogram on 10/14/2016. This reported architectural distortion in the left breast at the 2:00 posterior depth. There is a postsurgical associated with architectural distortion. No other significant masses calcifications or findings were seen. 2. Osteoporosis. Patient's last bone density scan on 10/14/2016 reporting a T score of the lumbar spine and -0.9. Left and right neck of the femur -3 and - 2.7 respectively. The patient was on Evista between the periods of March 2011 through October 2014 and was subsequently switched over to Fosamax due to intolerable side effects of the Evista. 3. Nonspecific left upper lobe 5 mm mass, stable since March [address] scan of the chest on April 05, 2014, unchanged. No further imaging studies were indicated. Results - Imaging Additional studies: Procedures Biopsy of lymphatic structure (09/24/10) Endoscopic polypectomy of large intestine (08/06/10) Injection or infusion of other therapeutic or prophylactic substance (07/09/11) Local excision of lesion of breast (09/24/10) Other diagnostic procedures on lymphatic structures (09/24/10) Home Medications and Allergies Home Medications Medication Instructions Recorded Confirmed Type ASPIRIN (#ASPIRIN) 81 mg PO Q DAY #0 09/01/12 History FORMOTEROL FUMARATE (Foradil) 0.012 mg IH BID #0 09/01/12 History budesonide [Pulmicort Flexhaler] 180 mcg INH BIDRT #0 09/01/12 History doxycycline hyclate 100 mg PO Q DAY #0 09/01/12 History tiotropium bromide [Spiriva with 18 mcg INH 0600 #4 tab 06/04/16 Rx HandiHaler] alendronate [Fosamax] 70 mg PO QWEEK #4 tab 10/17/16 Rx Allergies Allergy/AdvReac Type Severity Reaction Status Date / Time minocycline [MINOCYCLINE] Allergy Unknown VEIN Unverified 08/20/17 11:57 DISCOLORATION OF HER VEINS PER PT
--- NOTE | 2017-11-11 12:59 | P.PNONC_ITS ---
Assessment and Plan (1) Breast cancer Current visit: No Status: Acute 11/11/17 13:35 Kylah is a 72-year-old female who carries a diagnosis of stage I luminal like breast cancer in clinical remission/surveillance since original diagnosis August of 2010. She has no new concerns on exam today. Annual bilateral screening mammogram October 27, 2017 was without evidence of malignancy, recommendation is to continue with yearly screening mammograms. Reassuringly on exam today no clinical signs or symptoms of disease recurrence. Patient is severely underweight, borderline cachectic. She Is osteoporotic taking weekly Fosamax for ?years?. Most recent bone density screen was October 14, 2016. We will go ahead and repeat noting severe osteoporosis on by biphosphonate therapy. Return to clinic in 1 year for provider visit. Primary care is managed by Yuli MORAN - Time Spent with Patient 25 mins PN -Subjective Interval history: The patient is a 72 year old Female who is being seen in the clinic 11/03/2017. She carries a diagnosis of stage I luminal-like A breast cancer in clinical remission/surveillance since her original diagnosis in August 2010. She presents today for annual clinical evaluation. She had her annual bilateral screening mammogram October 27, 2017. No evidence of malignancy was identified, recommendation is to repeat in 1 year. Patient has no new concerns to report today. Overall she is feeling well. She remains on every week Fosamax for osteoporosis. She has not had any fractures. No recent illnesses or infections. No skin changes to report. No new pain, no new lumps or bumps. Activity tolerance is unchanged. Appetite is unchanged. Bladder and bowel habits are normal. Past Medical History The patient's past medical history is significant for: 1. Left-sided stage I, T1 N0 breast cancer originally diagnosed from an ultrasound core needle biopsy dated September 05, 2010. The patient's primary was a well-differentiated invasive ductal carcinoma, ER/AL positive at 98% and 93%, respectively. Ki-67 at 16%. HER2 was 1+. The patient is status post partial mastectomy with sentinel node procedure, her primary being 0.4 cm in greatest diameter. No LVI. Margins were otherwise clear. The patient was on Evista for a brief period of time between the periods of March 2011 through October 2014. She is up-to-date with her imaging studies including bilateral screening mammogram on 10/14/2016. This reported architectural distortion in the left breast at the 2:00 posterior depth. There is a postsurgical associated with architectural distortion. No other significant masses calcifications or findings were seen. 2. Osteoporosis. Patient's last bone density scan on 10/14/2016 reporting a T score of the lumbar spine and -0.9. Left and right neck of the femur -3 and - 2.7 respectively. The patient was on Evista between the periods of March 2011 through October 2014 and was subsequently switched over to Fosamax due to intolerable side effects of the Evista. 3. Nonspecific left upper lobe 5 mm mass, stable since March [address] scan of the chest on April 05, 2014, unchanged. No further imaging studies were indicated. Results - Imaging Additional studies: Procedures Biopsy of lymphatic structure (09/24/10) Endoscopic polypectomy of large intestine (08/06/10) Injection or infusion of other therapeutic or prophylactic substance (07/09/11) Local excision of lesion of breast (09/24/10) Other diagnostic procedures on lymphatic structures (09/24/10) Home Medications and Allergies Home Medications Medication Instructions Recorded Confirmed Type ASPIRIN (#ASPIRIN) 81 mg PO Q DAY #0 09/01/12 11/11/17 History FORMOTEROL FUMARATE (Foradil) 0.012 mg IH BID #0 09/01/12 11/11/17 History budesonide [Pulmicort Flexhaler] 180 mcg INH BIDRT #0 09/01/12 11/11/17 History doxycycline hyclate 100 mg PO Q DAY #0 09/01/12 11/11/17 History tiotropium bromide [Spiriva with 18 mcg INH 0600 #4 tab 06/04/16 11/11/17 Rx HandiHaler] alendronate 70 mg PO QWEEK #12 tab 11/11/17 Rx Allergies Allergy/AdvReac Type Severity Reaction Status Date / Time minocycline [MINOCYCLINE] Allergy Unknown VEIN Verified 11/11/17 13:09 DISCOLORATION OF HER VEINS PER PT Exam - Constitutional positive thin - Routine HEENT Exam Head: Present: normocephalic, atraumatic ENT: Present: mucous membranes moist, oropharynx clear - Routine Neck Exam Present: supple. Absent: lymphadenopathy - Routine Chest/Breast/Axilla Exam Chest wall exam standard: Absent: tenderness, mass Breast: Absent: tenderness, induration, mass, erythema Axillae: Absent: lymphadenopathy, mass, tenderness - Routine Respiratory Exam Present: Clear to auscultation bilaterally, decreased breath sounds. Absent: rales, rhonchi, wheezes - Routine Cardiovascular Exam Present: RRR, S1, S2. Absent: JVD - Routine Abdominal Exam Present: soft, normoactive bowel sounds. Absent: tenderness, distended, organomegaly Comments: scaphoid - Routine Extremities Exam Absent: edema, calf tenderness - Routine Skin Exam Present: intact, normal turgor - Routine Neurological Exam Present: alert, oriented X3 - Routine Psychiatric Exam Present: normal affect
[2017-11-11 13:07] VITALS: BP 160/84; PULSE 97; RESP 15; TEMP 36.6; O2SAT 91
[2018-12-02 16:15] VITALS: BP 162/75; PULSE 88; RESP 18; TEMP 36.6; O2SAT 91
--- NOTE | 2018-12-02 16:55 | P.PNONC_ITS ---
PN -Subjective Interval history: Diagnosis: Left-sided breast cancer, T1 N0 ER/MD positive HER2 negative. Previous treatment: 1. Lumpectomy and sentinel node biopsy in 2010. 2. She took Evista intermittently from March 2011 through October 2014. Interval history: The patient is a 72-year-old woman who returns today for follow-up. She has a history of a small 0.4 cm primary breast cancer that was diagnosed in 2010 and treated with surgery. She has not had any recurrence. Since her last visit here, she has not noticed any changes in the breast. She has not noticed any adenopathy. She denies any new aches or pains. She has had some discomfort in her abdomen on the left side near the end of the ribs. Her appetite has been good but she has been losing some weight. No nausea or vomiting. No fevers chills or sweats. No shortness of breath or cough. She denies any other changes in her health. She does use some inhalers but no other prescription medications. Past Medical History The patient's past medical history is significant for: 1. Left-sided stage I, T1 N0 breast cancer originally diagnosed from an ultrasound core needle biopsy dated September 05, 2010. The patient's primary was a well-differentiated invasive ductal carcinoma, ER/MD positive at 98% and 93%, respectively. Ki-67 at 16%. HER2 was 1+. The patient is status post partial mastectomy with sentinel node procedure, her primary being 0.4 cm in greatest diameter. No LVI. Margins were otherwise clear. The patient was on Evista for a brief period of time between the periods of March 2011 through October 2014. She is up-to-date with her imaging studies including bilateral screening mammogram on 10/14/2016. This reported architectural distortion in the left breast at the 2:00 posterior depth. There is a postsurgical associated with architectural distortion. No other significant masses calcifications or findings were seen. 2. Osteoporosis. Patient's last bone density scan on 10/14/2016 reporting a T score of the lumbar spine and -0.9. Left and right neck of the femur -3 and - 2.7 respectively. The patient was on Evista between the periods of March 2011 through October 2014 and was subsequently switched over to Fosamax due to intolerable side effects of the Evista. 3. Nonspecific left upper lobe 5 mm mass, stable since March [address] scan of the chest on April 05, 2014, unchanged. No further imaging studies were indicated. - Additional ROS Additional ROS: Weight loss, left-sided abdominal or flank pain. Home Medications and Allergies Home Medications Medication Instructions Recorded Confirmed Type budesonide [Pulmicort Flexhaler] 180 mcg INH BIDRT #0 09/01/12 12/31/17 History doxycycline hyclate 100 mg PO Q DAY #0 09/01/12 12/31/17 History tiotropium bromide [Spiriva with 18 mcg INH 0600 #4 tab 06/04/16 12/31/17 Rx HandiHaler] albuterol sulfate [ProAir HFA] 2 puff INHALATION Q4-6H PRN 12/02/18 12/02/18 History multivitamin 1 cap PO DAILY 12/02/18 12/02/18 History Allergies Allergy/AdvReac Type Severity Reaction Status Date / Time minocycline [MINOCYCLINE] Allergy Unknown VEIN Verified 02/25/18 09:53 DISCOLORATION OF HER VEINS PER PT Exam Vital signs: Vital Signs Temp Pulse Resp BP Pulse Ox 12/02/18 16:15 97.8 F 88 18 162/75 H 91 Intake and Output 12/02/18 12/02/18 12/02/18 07:59 15:59 23:59 Other: Weight 31.3 kg Patient Weight 12/02/18 23:59 Weight 31.3 kg - Constitutional positive no acute distress, positive thin - Routine HEENT Exam Head: Present: normocephalic, atraumatic Eye: Present: EOMI, PERRL. Absent: conjunctival icterus, scleral injection ENT: Present: mucous membranes moist, oropharynx clear - Routine Neck Exam Present: supple. Absent: lymphadenopathy, thyromegaly - Routine Chest/Breast/Axilla Exam Comments: Breast exam shows an area of scar tissue in the lateral left breast that is about 2 cm in diameter. The patient notes that it has been there in stable for many years. There are no other suspicious masses in either breast. No axillary adenopathy on either side. - Routine Respiratory Exam Present: Clear to auscultation bilaterally. Absent: rales, wheezes - Routine Cardiovascular Exam Present: RRR, S1, S2. Absent: murmur - Routine Abdominal Exam Present: soft, normoactive bowel sounds. Absent: tenderness, organomegaly, mass Comments: She does have some tenderness over the lower lateral left ribs. - Routine Extremities Exam Absent: cyanosis, clubbing, edema - Routine Back/Spine Exam Back/Spine: Absent: vertebral tenderness - Routine Skin Exam Present: intact. Absent: petechiae, rash - Routine Neurological Exam Present: alert, oriented X3 - Routine Psychiatric Exam Present: normal affect, normal thought process Results - Imaging Additional studies: Procedures Injection or infusion of other therapeutic or prophylactic substance (07/09/11) Assessment and Plan (1) Breast cancer Current visit: No Status: Acute 73-year-old woman with a history of stage I breast cancer. She is more than 8 years out from her diagnosis and has no evidence of disease. She will be due for a mammogram in August of next year. She will return to clinic in 1 year for follow-up. She does have some rib pain that I suspect may be costochondritis. She says it is not bad enough to take any medications but will follow up with her primary physician regarding this. She also has a history of osteoporosis and has been on Fosamax and Evista in the past. She could potentially be treated with either Reclast annually or perhaps denosumab. She would like to discuss this with her primary physician as well. She will return to clinic in 1 year for follow-up. 40 minutes was spent with the patient the majority in counseling.
[2019-12-29 15:15] VITALS: BP 143/77; PULSE 90; RESP 16; TEMP 35.8; O2SAT 87
--- NOTE | 2019-12-29 15:26 | ONC.MSW ---
Description: Coping Support Activity: Pt indicated a (9) on her distress screening, indicating sadness as the primary reason. In meeting with her, she shared how she is still deeply grieving her 's , which occurred last July. She does have many friends in [place], and states that she has an excellent support system. MOLD HOISTER offered emotional and coping support, as well as shared local resources for bereavement support. No further needs indicated at this time.
--- NOTE | 2019-12-29 15:54 | ONC.SCHED ---
patient will call next week to schedule for her follow up . . . her phone is not working so we can't call her (orders are not yet in the computer)
--- NOTE | 2019-12-29 16:42 | P.PNONC_ITS ---
PN -Subjective Interval history: Diagnosis: Left-sided breast cancer, T1 N0 ER/IL positive HER2 negative. Ms. Cunningham presents today for follow-up of her breast cancer. In 2010 she underwent a left lumpectomy for a 0.4 cm grade 1 infiltrating ductal carcinoma ER positive in 98% of the cells, IL positive in 93% of the cells, HER2 Nubia gene product negative with a Ki-67 of 16%, nodes negative, negative margins and no evidence of lymphovascular invasion. She took Evista intermittently between March 2011 and October of 2014. She tolerated this poorly and was subsequently switched to Fosamax. She was also noted to have a left upper lobe mass measuring 0.5 cm stable between March 2012 and March of 2014 with no further follow-up indicated. She comes today for a 1 year follow-up visit. Her brother in June and her in August. This is been a source of extreme stress to her. She has lost weight and is now down to 68 lb. She feels like her appetite is fairly good. She saw her primary care provider, Yuli Ruiz PA-C and has been given a nutritional supplement. She noticed a new mass in her left breast a few weeks ago and had imaging done yesterday with mammography and ultrasound that showed this to be benign scar tissue and calcifications without evidence of malignancy. She has a history of of episodic spells for the past several years about once a month where she feels unsteady with no loss of consciousness or falling. This lasts for a minute or 2 and she will stop which she is doing and hold on or occasionally sit down. This seemed to be worse when she is under stress. She has some left-sided abdominal flank pain which she reported to Dr. Bucio when she was here a year ago. It waxes and wanes and is been there for several years but she does not think it has changed. She has COPD although she states she quit smoking over 30 years ago. She has an appointment with Dr. Sherman from pulmonology in [place] tomorrow. She has home oxygen which she has not been using. She denies other new pain, bleeding, localized weakness, fever, chills, nausea, vomiting, constipation, di arrhea, change in her breathing or cough. She has not had a skin rash or any lumps or bumps except for the lesion in the left breast. All other systems are negative. Past Medical History Past history is reviewed from her previous notes. - Patient Self-Reported Symptoms SR Cardiovascular issues: Dizzy/lightheaded Home Medications and Allergies Home Medications Medication Instructions Recorded Confirmed Type Pulmicort Flexhaler 180 mcg INH BIDRT #0 09/01/12 12/29/19 History doxycycline hyclate 100 mg PO Q DAY #0 09/01/12 12/29/19 History Spiriva with HandiHaler 18 mcg INH 0600 #4 tab 06/04/16 12/29/19 Rx albuterol sulfate [ProAir HFA] 2 puff INHALATION Q4-6H PRN 12/02/18 12/29/19 History multivitamin 1 cap PO DAILY 12/02/18 12/29/19 History Allergies Allergy/AdvReac Type Severity Reaction Status Date / Time minocycline [MINOCYCLINE] Allergy Unknown VEIN Verified 02/25/18 09:53 DISCOLORATION OF HER VEINS PER PT Exam Vital signs: Vital Signs Temp Pulse Resp BP Pulse Ox 12/29/19 15:15 96.5 F L 90 16 143/77 H 87 L Intake and Output 12/29/19 12/29/19 12/29/19 07:59 15:59 23:59 Other: Weight 30.8 kg Patient Weight 12/29/19 23:59 Weight 30.8 kg Narrative: She was awake, alert and oriented x3. She was in no acute distress. There was no palpable lymphadenopathy in the cervical, supraclavicular, axillary, inguinal or femoral regions. Lungs showed slightly decreased breath sounds diffusely with no evidence of pleural effusion on exam. Heart showed a regular rate and rhythm without murmur, gallop or rub. The right breast was without masses. The left breast showed an approximately 4 cm very hard mass in the outer aspect of the left breast. The overlying skin was normal. Abdomen was soft and nontender without organomegaly or masses. There was no evidence of phlebitis in the lower extremities. Results - Imaging Additional studies: Procedures Biopsy of lymphatic structure (09/24/10) Endoscopic polypectomy of large intestine (08/06/10) Injection or infusion of other therapeutic or prophylactic substance (07/09/11) Local excision of lesion of breast (09/24/10) Other diagnostic procedures on lymphatic structures (09/24/10) Assessment and Plan (1) Breast cancer Status: Acute 73-year-old woman with a history of stage I breast cancer. She had a very small tumor with favorable prognostic features and would be at low risk of relapse. Her mammogram and breast imaging did not show any evidence of local recurrence. She does have progressive weight loss. She has been through a lot of emotional trauma this year with the of her brother and . However, she thinks she was starting to lose weight even before her brother . She does not have any clinical findings that would suggest an obvious recurrence of her low risk breast cancer. For today will get a blood count and chemistry panel. She is not sure if she has had these labs done previously. Her recent bone density test shows osteoporosis and she has been advised to start Xgeva by her primary care provider. She wanted to know what that would involve and I explained that shot given under the skin every 6 months. Flu-like symptoms can happen with the 1st dose, less commonly thereafter. It is generally well tolerated and is a very effective drug for osteoporosis. She has an appointment to see Dr. sherman tomorrow. I did not order any pulmonary imaging or any other scans. I strongly encouraged her to follow-up with her primary care provider, Lincoln Ruiz PA-C, after her visit with Dr. Sherman. I will follow-up on the labs were drawn today which include a CBC and metabolic panel but I told her that I think it is unlikely that her current issues are related to recurrent breast cancer. I also explained that if, in the course of her assessment, she ends up with a diagnosis that we could assist with, we would be happy to see her back at any time. On the assumption that she will not have a cancer related diagnosis, return but will be scheduled here in a year. I personally spent 27 minutes in today's [id number] visit with greater than 50% of the time spent in counseling regarding the issues outlined above. Impression: 1. Stage I low risk breast cancer treated with left lumpectomy in 2010 with no obvious evidence of recurrence on clinical assessment 2. Recent weight loss, etiology uncertain 3. Worsening osteoporosis on recent bone density test 4. She is dealing with the of her brother in June and her in August of this year Recommendations: 1. CBC and CMP will be obtained today 2. She was seen by delinquency prevention social worker today regarding stress counseling 3. Follow-up as scheduled with Dr. Sherman tomorrow 4. Follow-up with Yuli Ruiz PA-C after her pulmonary follow-up visit 5. Return here in 1 year for follow-up 6. If a malignancy is discovered in the course of her assessment, would be happy to see her at any time if we could be of assistance in her care
== END ==
PROVIDERS: Family Provider Physician Assistant; PCP Physician Assistant; Visit Provider Internal Medicine
DX: Z08 Encounter for follow-up examination after completed treatment for malignant neoplasm (principal); Z85.3 Personal history of malignant neoplasm of breast
CPT/HCPCS: 99214; 99215

== ENCOUNTER → 2020-04-27 19:53 | Outpatient (ROUT) | payer MEDICARE, BC, SELFPAY ==
[2020-04-27 20:20] LABS: Add Manual Diff / Slide Review NO; Basophils Absolute Auto 0 /uL (0-100); Basophils Percent Auto 0.3 % (0-2); Eosinophils Absolute Auto 0 /uL (0-450); Eosinophils Percent Auto 0.5 % (2-4); Hematocrit 44.7 % (36-46); Hemoglobin 14.4 g/dL (12.0-16.0); Lymphocytes Absolute Auto 900 /uL (1100-4500); Lymphocytes Percent Auto 19.4 % (25-40); Mean Corpuscular HGB Conc 32.1 % (30-36); Mean Corpuscular Hemoglobin 30.2 PG (26-34); Mean Corpuscular Volume 93.9 fL (80-100); Monocytes Absolute Auto 400 /uL (0-900); Neutrophils Absolute Auto 3400 /uL (1500-7000); Neutrophils Percent Auto 71.8 % (50-75); Platelet Count 234 X10^3/uL (150-400); Red Blood Cell Count 4.76 X10^6/uL (4.0-5.2); White Blood Cell Count 4.8 X10^3/uL (4.5-11.0)
[2020-04-27 20:25] LABS: Iron 126 ug/dL (37-170)
[2020-04-27 20:28] LABS: Hemoglobin A1C% w Est Avg Glu 5.7 % (4.0-6.0)
[2020-04-27 20:30] LABS: Alanine Aminotransferase 15 IU/L (<35); Albumin 4.4 g/dL (3.5-5.0); Albumin Globulin Ratio 1.6 (1.0-2.8); Alkaline Phosphatase 79 U/L (38-126); Aspartate Aminotransferase 34 IU/L (14-36); BUN Creatinine Ratio 32.5 (6-22); Bilirubin Total 0.4 mg/dL (0.2-1.3); Blood Urea Nitrogen 26 mg/dL (7-17); Calcium 9.9 mg/dL (8.4-10.2); Carbon Dioxide 35 mmol/L (22-32); Chloride 99 mmol/L (98-107); Estimated Glomerular Filt Rate > 60.0 mL/min (>60); Globulin 2.8 g/dL (1.7-4.1); Glucose 104 mg/dL (80-110); HEMOLYSIS < 15 (0-50); Potassium 5.3 mmol/L (3.4-5.1); Sodium 137 mmol/L (137-145); Total Protein 7.2 g/dL (6.3-8.2)
[2020-04-27 20:37] LABS: C-Reactive Protein Quant < 0.5 mg/dL (<1.0); Percent Iron Saturation 33 % (15-50); Total Iron Binding Capacity 382 ug/dL (265-497); Transferrin 304 mg/dL (206-381)
[2020-04-27 20:42] LABS: Erythrocyte Sedimentation Rate 3 MM/HR (0-20)
[2020-04-27 20:56] LABS: TSH w/ Reflex to FT4 0.48 uIU/mL (0.47-4.68)
[2020-04-27 21:02] LABS: Ferritin 30 ng/mL (11-264)
[2020-04-27 21:32] LABS: Folate 6.3 ng/mL (2.76-20.0); Vitamin B12 222 pg/mL (239-931)
[2020-04-29 06:36] LABS: Parathyroid Hormone Int 80 pg/mL (15-65)
== END ==
PROVIDERS: Family Provider Physician Assistant; PCP Physician Assistant; Visit Provider Physician Assistant
DX: E78.2 Mixed hyperlipidemia (principal); E55.9 Vitamin D deficiency, unspecified; E43 Unspecified severe protein-calorie malnutrition; E83.52 Hypercalcemia; R63.0 Anorexia; D51.0 Vitamin B12 deficiency anemia due to intrinsic factor deficiency; E61.1 Iron deficiency; M81.8 Other osteoporosis without current pathological fracture; I10 Essential (primary) hypertension
CPT/HCPCS: 80053; 82607; 82728; 82746; 83036; 83540; 83550; 83970; 84443; 85025; 85651; 86140